=== PATIENT | female | born 1995 | race Caucasian/White ===

== ENCOUNTER 2017-08-23 11:54 | Emergency (ER) | payer OTHER ==
[2017-08-23 13:31] LABS: FREE T4 (FREE THYROXINE) 0.97 ng/dl (0.79-2.35)
[2017-08-23 14:03] LABS: FREE T3 5.07 pg/ml (2.77-5.27)
== END 2017-08-23 14:43 | disposition home or self-care (01) ==
LOC: E/R 11:54
DX: R00.1 Bradycardia, unspecified (principal); J45.909 Unspecified asthma, uncomplicated
CPT/HCPCS: 84439; 84443; 84481; 93005; 99284-25